=== PATIENT | male | born 1995 | race Caucasian/White ===

== ENCOUNTER 2025-05-12 16:59 | Emergency (ER) | payer SELFPAY ==
[~2025-05-12] VITALS: Ht 170.2 cm; Wt 59.0 kg
[2025-05-12 17:01] VITALS: TEMP 36.9; O2SAT 99
[2025-05-12 18:15] LABS: BASOPHILS % 2.6 % (0.0-2.0); EOSINOPHILS % 1.0 % (0.0-5.0); HEMATOCRIT. 33.3 % (42.0-52.0); HEMOGLOBIN. 11.1 g/dL (14.0-18.0); LYMPHOCYTES % 43.6 % (20.0-50.0); MEAN PLATELET VOLUME 7.4 fl (7.4-10.4); MONOCYTES % 6.6 % (2.0-8.0); NEUTROPHILS % 46.2 % (40.0-76.0); PLATELET 191 x1000/uL (130-400); RED BLOOD CELL COUNT 3.60 mill/uL (4.7-6.1); RED CELL DISTRIBUTION WIDTH 14.1 % (11.6-14.6)
[2025-05-12 18:29] LABS: CREATININE 0.6 mg/dL (0.6-1.3)
[2025-05-12 18:30] LABS: ETHANOL BLOOD 300 mg/dL (<10); UREA NITROGEN BLOOD 5 mg/dL (9-23)
[2025-05-12 18:31] LABS: ASPARTATE AMINOTRANSFERASE 107 IU/L (<34)
[2025-05-12 18:32] LABS: BILIRUBIN DIRECT 0.3 mg/dL (<=3.0); BILIRUBIN TOTAL 0.6 mg/dL (0.1-1.0); PROTEIN TOTAL 7.1 g/dL (6.0-8.3)
[2025-05-12 18:33] LABS: INR 1.2
[2025-05-12] MEDS: POTASSIUM CHLORIDE 20MEQ TABLET SR PO ONE (20:50)
[2025-05-12 21:43] VITALS: BP 139/62; PULSE 117; RESP 16; O2SAT 96
== END 2025-05-12 21:45 | disposition home or self-care (01) ==
LOC: ER 16:59
DX: R41.82 Altered mental status, unspecified (principal); E87.6 Hypokalemia; E87.8 Other disorders of electrolyte and fluid balance, not elsewhere classified; F10.129 Alcohol abuse with intoxication, unspecified; Z79.899 Other long term (current) drug therapy; Y90.9 Presence of alcohol in blood, level not specified
CPT/HCPCS: 36415; 80048; 80076; 80320; 85025; 99283; G0480